=== PATIENT | male | born 1950 | race African-American/Black ===

== ENCOUNTER 2016-11-18 05:08 | Inpatient (IN) | payer MEDICAID ==
[~2016-11-18] VITALS: Ht 193 cm; Wt 84.8 kg
[~2016-11-18 05:08] MED LIST: HYDR-523 PO; LISI10TA5 PO; METF500T4 PO; METO25TA6 PO
[2016-11-18] MEDS ORDERED: ONDANSETRON HCL 4MG/2ML VIAL IV STA (06:25)
[2016-11-18] MEDS ORDERED: KETOROLAC 30MG/ML VIAL IV STA (06:25)
[2016-11-18] MEDS ORDERED: SODIUM CHLORIDE 0.9% 1,000 ML IV ONE ×3 (06:25→14:57)
[2016-11-18 07:16] LABS: BASOPHILS % 0.6 % (0.0-2.0); HEMATOCRIT. 28.7 % (42.0-52.0); HEMOGLOBIN. 9.7 g/dL (14.0-18.0); LYMPHOCYTES % 23.7 % (20.0-50.0); MEAN CORPUSCULAR VOLUME 91.4 fL (80.0-94.0); MEAN PLATELET VOLUME 10.6 fl (7.4-10.4); MONOCYTES % 10.5 % (2.0-8.0); NEUTROPHILS % 63.2 % (40.0-76.0); PLATELET 121 x1000/uL (130-400); RED BLOOD CELL COUNT 3.13 mill/uL (4.7-6.1); RED CELL DISTRIBUTION WIDTH 13.3 % (11.6-14.6)
[2016-11-18 07:20] LABS: INR 1.4; PROTHROMBIN TIME 14.7 sec (9.4-11.6)
[2016-11-18 07:25] LABS: CHLORIDE 102 mEq/L (98-107)
[2016-11-18 07:30] LABS: CARBON DIOXIDE 25 mEq/L (21-32)
[2016-11-18] MEDS ORDERED: ALBUTEROL (0.083%) 2.5MG/3ML NEB HHN ONE (07:45)
[2016-11-18] MEDS ORDERED: DEXTROSE 50% WATER 50ML SYRINGE IV ONE (07:45)
[2016-11-18] MEDS ORDERED: SODIUM BICARBONATE 8.4% 1 MEQ/ML 50ML SYR IV ONE (07:45)
[2016-11-18] MEDS ORDERED: INSULIN REGULAR (HUMULIN R) 300UNITS/3ML IV ONE (07:45)
[2016-11-18] MEDS ORDERED: CALCIUM CHLORIDE 1GM/10ML SYR IV ONE (07:45)
[2016-11-18] MEDS ORDERED: INSULIN REGULAR (HUMULIN R) 300UNITS/3ML IV NR (08:00)
[2016-11-18 09:03] LABS: GLUCOSE URINE TRACE (NEGATIVE); KETONES URINE TRACE (NEGATIVE); LEUKOCYTE ESTERASE URINE NEGATIVE (NEGATIVE); NITRITE URINE NEGATIVE (NEGATIVE); OCCULT BLOOD URINE NEGATIVE (NEGATIVE); PROTEIN URINE NEGATIVE (NEGATIVE); SPECIFIC GRAVITY URINE 1.017 (1.005-1.030)
[2016-11-18 09:06] LABS: CLARITY URINE CLEAR (CLEAR); COLOR URINE YELLOW (YELLOW)
[2016-11-18] MEDS ORDERED: ACETAMINOPHEN WITH CODEINE 300/30MG TABLET PO ONE (09:30)
[2016-11-18] MEDS ORDERED: VANCOMYCIN 1 G PREMIX 200 ML IV SCH (11:30)
[2016-11-18] MEDS ORDERED: PIPERACILLIN/TAZOBACTAM 3.375GM/50ML PREMIX IV ONE (11:30)
[2016-11-18] MEDS ORDERED: PIPERACILLIN/TAZ 3.375G PREMIX 50 ML IV NR (11:45)
[2016-11-18 14:48] LABS: *AMPHETAMINES SCREEN URINE NEGATIVE (NEGATIVE); *BARBITURATES SCREEN URINE NEGATIVE (NEGATIVE); *BENZODIAZEPINES SCREEN URINE NEGATIVE (NEGATIVE); *COCAINE SCREEN URINE PRESUMTIVE POSITIVE (NEGATIVE); CANNABINOID URINE SCREEN NEGATIVE (NEGATIVE); METHADONE URINE SCREEN NEGATIVE (NEGATIVE); OPIATES URINE SCREEN NEGATIVE (NEGATIVE); PHENCYCLIDINE URINE SCREEN NEGATIVE (NEGATIVE)
[2016-11-18] MEDS ORDERED: DEXT 5%/0.45% NACL 1000ML 1,000 ML IV SCH (14:57)
[2016-11-18] MEDS ORDERED: HYDROCODONE/ACETAMINOPHEN 5/325MG TABLET PO PRN (15:00)
[2016-11-18] MEDS ORDERED: ACETAMINOPHEN 325MG TABLET PO PRN (15:00)
[2016-11-18] MEDS ORDERED: DEXTROSE 50% WATER 50ML SYRINGE IV PRN (15:00)
[2016-11-18] MEDS ORDERED: PANTOPRAZOLE SODIUM 40 MG/VIAL IV SCH ×2 (15:00→21:00)
[2016-11-18] MEDS ORDERED: FERROUS SULFATE 325MG TABLET PO NR (16:00)
[2016-11-18] MEDS ORDERED: MULTIVITAMINS,THER W-MINERALS TABLET PO NR (16:00)
[2016-11-18] MEDS: OCTREOTIDE 1,000 MCG in SODIUM CHLORIDE 0.9% 98 ML IV SCH (16:51)
[2016-11-18] MEDS: BLOOD SUGAR DIAGNOSTIC STRIP TEST SCH ×3 (17:00→21:36)
[2016-11-18] MEDS ORDERED: OCTREOTIDE 1,000 MCG in SODIUM CHLORIDE 0.9% 100 ML IV SCH (17:00)
[2016-11-18 17:45] LABS: HEMATOCRIT 23.2 % (42.0-52.0); HEMOGLOBIN 7.8 g/dL (14.0-18.0)
[2016-11-18] MEDS ORDERED: SODIUM CHLORIDE 0.9% 1,000 ML IV NR (18:15)
[2016-11-18] MEDS: INSULIN LISPRO 100 UNITS/ML SUBCUT SCH ×2 (18:16→21:39)
[2016-11-18 18:30] VITALS: BP 97/52
[2016-11-18 19:02] VITALS: BP 96/58
[2016-11-18] MEDS: SODIUM POLYSTYRENE SULFONATE 15 G/60 ML BOT PO NR ×2 (19:51→22:00)
[2016-11-18 20:00] VITALS: BP 96/53
[2016-11-18 21:00] VITALS: BP 92/64
[2016-11-18] MEDS: PANTOPRAZOLE 80 MG in SODIUM CHLORIDE 0.9% 100 ML IV SCH (21:37)
[2016-11-18] MEDS: ONDANSETRON HCL 4MG/2ML VIAL IV PRN (21:42)
[2016-11-18 22:00] VITALS: BP 94/69
[2016-11-18] MEDS ORDERED: INSULIN DETEMIR UD 100 UNITS/ML SYR SUBCUT SCH (22:00)
[2016-11-18 23:00] VITALS: BP 93/59
[2016-11-19] VITALS (77 sets, daily range): BP systolic 39–165; BP diastolic 21–112
[2016-11-19] MEDS: MORPHINE SULFATE 2 MG/ML CPJ (NOT FOR IM USE) IV PRN ×2 (00:23→04:31)
[2016-11-19] MEDS: ONDANSETRON HCL 4MG/2ML VIAL IV PRN (04:28)
[2016-11-19 06:09] LABS: INR 1.9; PROTHROMBIN TIME 19.8 sec (9.4-11.6)
[2016-11-19 06:10] LABS: BASOPHILS % 0.6 % (0.0-2.0); EOSINOPHILS % 0.1 % (0.0-5.0); HEMATOCRIT. 22.6 % (42.0-52.0); HEMOGLOBIN. 7.4 g/dL (14.0-18.0); LYMPHOCYTES % 18.3 % (20.0-50.0); MEAN CORPUSCULAR HEMOGLOBIN 30.9 pg (28.0-32.0); MEAN CORPUSCULAR VOLUME 94.4 fL (80.0-94.0); MEAN PLATELET VOLUME 11.2 fl (7.4-10.4); MONOCYTES % 11.8 % (2.0-8.0); NEUTROPHILS % 69.2 % (40.0-76.0); PLATELET 140 x1000/uL (130-400); RED BLOOD CELL COUNT 2.39 mill/uL (4.7-6.1); RED CELL DISTRIBUTION WIDTH 13.8 % (11.6-14.6)
[2016-11-19] MEDS: PANTOPRAZOLE 80 MG in SODIUM CHLORIDE 0.9% 100 ML IV SCH ×2 (06:16→17:07)
[2016-11-19 06:50] LABS: CARBON DIOXIDE 17 mEq/L (21-32); CHLORIDE 105 mEq/L (98-107); LDL CHOLESTEROL 43 mg/dL (5-100); PHOSPHORUS 4.8 mg/dL (2.5-4.9)
[2016-11-19 06:56] LABS: CREATINE KINASE 154 IU/L (39-308); HDL CHOLESTEROL 33 mg/dL (40-59); TROPONIN I 0.19 ng/mL (0.00-0.04)
[2016-11-19] MEDS: INSULIN LISPRO 100 UNITS/ML SUBCUT SCH ×4 (08:20→18:57)
[2016-11-19 08:28] LABS: BG BASE EXCESS -15.6 mmol/L (-2.0-2.0); BG CARBOXYHEMOGLOBIN 0.6 % (0.5-1.5); BG DEOXYHEMOGLOBIN 2.7 % (0.0-5.0); BG FRACTION INSPIRED OXYGEN 21; BG HCO3 ACT 8.8 mmol/L (22.0-26.0); BG METHEMOGLOBIN 0.4 % (0.0-1.5); BG OXYGEN SATURATION 97.3 % (92.0-98.5); BG OXYHEMOGLOBIN 96.3 % (94.0-97.0); BG PCO2 17.4 mmHg (35.0-45.0); BG PH 7.321 (7.350-7.450); BG PO2 122.6 mmHg (75.0-100.0); BG SAMPLE SITE RIGHT RADIAL; BG VENT MODE ROOM AIR
[2016-11-19] MEDS ORDERED: SODIUM CHLORIDE 0.9% 1000ML BAG (SEPSIS BOLUS) IV ONE (08:30)
[2016-11-19] MEDS ORDERED: SODIUM CHLORIDE 0.9% 1,000 ML IV SCH ×2 (08:30→08:45)
[2016-11-19] MEDS: BLOOD SUGAR DIAGNOSTIC STRIP TEST SCH ×4 (08:40→21:45)
[2016-11-19] MEDS ORDERED: MULTIVITAMINS,THER W-MINERALS TABLET PO SCH (09:00)
[2016-11-19] MEDS ORDERED: FERROUS SULFATE 325MG TABLET PO SCH (09:00)
[2016-11-19] MEDS ORDERED: FOLIC ACID 1MG TABLET PO SCH (09:00)
[2016-11-19] MEDS ORDERED: MAGNESIUM 2 G PREMIX 50 ML IV NR (09:30)
[2016-11-19 09:57] LABS: AMMONIA 81 uMol/L (<32)
[2016-11-19] MEDS ORDERED: SODIUM BICARBONATE 8.4% 1 MEQ/ML 50ML SYR IV NR ×3 (09:57→16:25)
[2016-11-19 10:25] LABS: AMYLASE 97 IU/L (25-115)
[2016-11-19] MEDS ORDERED: NOREPINEPHRINE 16 MG in DEXT 5% WATER 234 ML IV PRN (11:00)
[2016-11-19] MEDS ORDERED: MORPHINE SULFATE 2 MG/ML CPJ (NOT FOR IM USE) IV PRN (11:00)
[2016-11-19] MEDS ORDERED: SODIUM BICARBONATE 100 MEQ in DEXT 5%/0.2% NACL 1,000 ML IV SCH ×3 (11:00)
[2016-11-19] MEDS: OCTREOTIDE 1,000 MCG in SODIUM CHLORIDE 0.9% 98 ML IV SCH (13:11)
[2016-11-19 14:31] LABS: BG BASE EXCESS -27.5 mmol/L (-2.0-2.0); BG CARBOXYHEMOGLOBIN 0.4 % (0.5-1.5); BG DEOXYHEMOGLOBIN 3.4 % (0.0-5.0); BG FRACTION INSPIRED OXYGEN 21; BG HCO3 ACT 2.6 mmol/L (22.0-26.0); BG METHEMOGLOBIN 0.1 % (0.0-1.5); BG OXYGEN SATURATION 96.6 % (92.0-98.5); BG OXYHEMOGLOBIN 96.1 % (94.0-97.0); BG PCO2 12.1 mmHg (35.0-45.0); BG PH 6.946 (7.350-7.450); BG PO2 135.5 mmHg (75.0-100.0); BG SAMPLE SITE RIGHT RADIAL; BG TOTAL HEMOGLOBIN 8.2 g/dL (12.0-18.0); BG VENT MODE ROOM AIR
[2016-11-19] MEDS ORDERED: PROPOFOL 10MG/ML 100ML 100 ML IV PRN (15:30)
[2016-11-19 16:15] LABS: BG CARBOXYHEMOGLOBIN 0.3 % (0.5-1.5); BG DEOXYHEMOGLOBIN 27.7 % (0.0-5.0); BG HCO3 ACT 8.8 mmol/L (22.0-26.0); BG METHEMOGLOBIN 0.7 % (0.0-1.5); BG OXYHEMOGLOBIN 71.3 % (94.0-97.0); BG PCO2 54.4 mmHg (35.0-45.0); BG PH 6.825 (7.350-7.450); BG PO2 60.6 mmHg (75.0-100.0); BG SAMPLE SITE RIGHT BRACHIAL; BG TIDAL VOLUME(mL) 550 mL; BG TOTAL HEMOGLOBIN 7.9 g/dL (12.0-18.0); BG VENT MODE VENT - A/C; BG VENT RATE 16 set
[2016-11-19] MEDS ORDERED: ETOMIDATE 2MG/ML 10ML VIAL IV ONE (16:55)
[2016-11-19] MEDS ORDERED: VECURONIUM BROMIDE 10 MG/VIAL IV ONE (16:55)
[2016-11-19] MEDS ORDERED: STERILE WATER FOR INJECTION 10ML VIAL ONE (16:55)
[2016-11-19] MEDS ORDERED: SODIUM CHLORIDE 0.9% 1,000 ML IV NR (17:30)
[2016-11-19] MEDS: PHENYLEPHRINE 40 MG in DEXT 5% WATER 500 ML IV PRN ×2 (17:36→23:14)
[2016-11-19] MEDS: NACL IV SCH (18:22)
[2016-11-19] MEDS: SODIUM ACETATE IV SCH (18:22)
[2016-11-19] MEDS: DEXT IV SCH (18:22)
[2016-11-19] MEDS: VASOPRESSIN 10 UNIT in SODIUM CHLORIDE 0.9% 99.5 ML IV PRN ×2 (18:35→22:27)
[2016-11-19 18:46] LABS: HEMATOCRIT 15.5 % (42.0-52.0); HEMOGLOBIN 4.7 g/dL (14.0-18.0)
[2016-11-19] MEDS: IPRATROPIUM/ALBUTEROL 0.5-3(2.5)MG/3ML NEB INH PRN ×2 (19:59→23:29)
[2016-11-19] MEDS: LACTULOSE 20G/30ML UDC PO SCH (20:00)
[2016-11-19] MEDS ORDERED: NOREPINEPHRINE 32 MG in DEXT 5% WATER 468 ML IV PRN (20:30)
[2016-11-20] VITALS (18 sets, daily range): BP systolic 66–157; BP diastolic 31–79
[2016-11-20 01:19] LABS: HEMATOCRIT 22.6 % (42.0-52.0)
[2016-11-20 01:24] LABS: HEMOGLOBIN 6.6 g/dL (14.0-18.0)
[2016-11-20] MEDS: NACL IV SCH (02:10)
[2016-11-20] MEDS: SODIUM ACETATE IV SCH (02:10)
[2016-11-20] MEDS: DEXT IV SCH (02:10)
[2016-11-20] MEDS: PANTOPRAZOLE 80 MG in SODIUM CHLORIDE 0.9% 100 ML IV SCH (02:12)
[2016-11-20] MEDS: VASOPRESSIN 10 UNIT in SODIUM CHLORIDE 0.9% 99.5 ML IV PRN (02:14)
[2016-11-20] MEDS: PHENYLEPHRINE 40 MG in DEXT 5% WATER 500 ML IV PRN (03:02)
[2016-11-20] MEDS: LACTULOSE 20G/30ML UDC PO SCH (03:06)
== END 2016-11-20 03:45 | disposition expired | DRG 279 ==
LOC: ER 05:08 → CVICU 10:40 → EDBEDREQSVC 10:43 → EDBEDREQ 10:43 → EDBEDREQTM 12:31 → EDBEDREQSVC 12:31 → ENRESERV 13:57 → CANRESERV 13:57 → EDBEDREQSVC 15:34 → EDBEDREQ 15:34 → EDBEDREQTM 15:34 → ENRESERV 17:01
PROVIDERS: ADMIT Internal Medicine; ATTEND Internal Medicine
PROC: 02HV33Z Insertion of Infusion Device into Superior Vena Cava, Percutaneous Approach (ICD-10-PCS; 2016-11-18)
PROC: B548ZZA Ultrasonography of Superior Vena Cava, Guidance (ICD-10-PCS; 2016-11-18)
PROC: 5A1935Z Respiratory Ventilation, Less than 24 Consecutive Hours (ICD-10-PCS; principal; 2016-11-19)
PROC: 30233L1 Transfusion of Nonautologous Fresh Plasma into Peripheral Vein, Percutaneous Approach (ICD-10-PCS; 2016-11-19)
PROC: 30233N1 Transfusion of Nonautologous Red Blood Cells into Peripheral Vein, Percutaneous Approach (ICD-10-PCS; 2016-11-19)
PROC: 30233K1 Transfusion of Nonautologous Frozen Plasma into Peripheral Vein, Percutaneous Approach (ICD-10-PCS; 2016-11-19)
PROC: 0BH17EZ Insertion of Endotracheal Airway into Trachea, Via Natural or Artificial Opening (ICD-10-PCS; 2016-11-19)
DX: K72.00 Acute and subacute hepatic failure without coma (principal); J96.00 Acute respiratory failure, unspecified whether with hypoxia or hypercapnia; R65.11 Systemic inflammatory response syndrome (SIRS) of non-infectious origin with acute organ dysfunction; N17.9 Acute kidney failure, unspecified; E87.2 Acidosis; D68.4 Acquired coagulation factor deficiency; I95.9 Hypotension, unspecified; R18.8 Other ascites; I42.9 Cardiomyopathy, unspecified; K92.2 Gastrointestinal hemorrhage, unspecified; K74.60 Unspecified cirrhosis of liver; I12.9 Hypertensive chronic kidney disease with stage 1 through stage 4 chronic kidney disease, or unspecified chronic kidney disease; E11.22 Type 2 diabetes mellitus with diabetic chronic kidney disease; N18.9 Chronic kidney disease, unspecified; D50.0 Iron deficiency anemia secondary to blood loss (chronic); D69.6 Thrombocytopenia, unspecified; E11.51 Type 2 diabetes mellitus with diabetic peripheral angiopathy without gangrene; E11.65 Type 2 diabetes mellitus with hyperglycemia; B18.2 Chronic viral hepatitis C; E87.5 Hyperkalemia; F14.10 Cocaine abuse, uncomplicated; R74.0 Nonspecific elevation of levels of transaminase and lactic acid dehydrogenase [LDH]; Z96.643 Presence of artificial hip joint, bilateral; F17.210 Nicotine dependence, cigarettes, uncomplicated; K40.90 Unilateral inguinal hernia, without obstruction or gangrene, not specified as recurrent; K86.89 Other specified diseases of pancreas; N28.1 Cyst of kidney, acquired; Z79.4 Long term (current) use of insulin; Z79.84 Long term (current) use of oral hypoglycemic drugs; Z79.899 Other long term (current) drug therapy; Z82.49 Family history of ischemic heart disease and other diseases of the circulatory system
CPT/HCPCS: 31500; 36415; 36569; 36600; 71010; 72170; 74176; 76937; 80048; 80053; 80061; 80305; 81001; 82140; 82150; 82270; 82375; 82550; 82805; 82962; 83605; 83690; 83735; 84100; 84443; 84484; 85014; 85018; 85025; 85610; 85730; 86850; 86900; 86920; 86927; 87040; 87086; 87493; 93005; 93970; 94002; 94640; 96361; 96374; 96375; 99285; A4216; A6261; C1725; C9113; J1815; J1885; J2270; J2354; J2370; J2405; J2543; J2704; J3370; J3475; J3490; J7030; J7040; J7050; J7060; J7620; P9016; P9017; A4315